=== PATIENT | female | born 1965 | race Caucasian/White ===

== ENCOUNTER 2021-03-19 09:07 | Emergency (ER) | payer BC ==
[2021-03-19 09:11] VITALS: BMI 22.6
[2021-03-19] MEDS ORDERED: SOTROVIMAB 500 MG in SODIUM CHLORIDE 100 ML IVPB ONE (09:18)
[2021-03-19 11:13] VITALS: TEMP 98.5
[2021-03-19 13:20] VITALS: BP 117/76; PULSE 86
== END 2021-03-19 13:32 | disposition home or self-care (01) ==
LOC: JCOVINFU 09:07
DX: U07.1 COVID-19 (principal)
CPT/HCPCS: 99284-25; M0247; Q0247